=== PATIENT | female | born 1970 | race Hispanic/Latino ===

== ENCOUNTER 2016-07-11 08:39 | Day surgery (SDC) | payer OTHER ==
[2016-07-11] MEDS ORDERED: Lactated Ringer's 500 ML IV ONE (08:58)
[2016-07-11] MEDS ORDERED: Propofol 10 mg/ml Inj (20 ML) ONE (10:05)
[2016-07-11 14:10] VITALS: TEMP 97.5; O2SAT 100
[2016-07-11 14:11] VITALS: BP 124/73; PULSE 65; RESP 14
== END 2016-07-11 14:21 | disposition home or self-care (01) ==
LOC: H.ENDO 08:39
PROVIDERS: ATTEND Internal Medicine Gastroenterology
DX: Z12.11 Encounter for screening for malignant neoplasm of colon (principal); D12.2 Benign neoplasm of ascending colon; D12.0 Benign neoplasm of cecum; E11.9 Type 2 diabetes mellitus without complications; E78.5 Hyperlipidemia, unspecified; I10 Essential (primary) hypertension; G47.30 Sleep apnea, unspecified

== ENCOUNTER 2016-08-08 09:09 | Day surgery (SDC) | payer OTHER ==
[2016-08-08] MEDS ORDERED: Lactated Ringer's 500 ML IV ONE (09:43)
[2016-08-08 09:46] VITALS: TEMP 98.1; O2SAT 100
[2016-08-08 12:21] VITALS: BP 122/57; PULSE 65; RESP 17
== END 2016-08-08 12:45 | disposition home or self-care (01) ==
LOC: H.ENDO 09:09
PROVIDERS: ATTEND Internal Medicine Gastroenterology
DX: D50.9 Iron deficiency anemia, unspecified (principal); K59.04 Chronic idiopathic constipation; K62.1 Rectal polyp